=== PATIENT | male | born 1955 | race Hispanic/Latino ===

== ENCOUNTER 2018-03-01 15:42 | Emergency (ER) | payer BC ==
[2018-03-01] MEDS ORDERED: methylPREDNISolone Sod Succ/PF 125 MG/2 ML VIAL ONE (16:20)
[2018-03-01] MEDS ORDERED: Sterile Water 10 ML ONE (16:21)
--- NOTE | 2018-03-01 16:51 | RAD ---
LUMBAR SPINE THREE VIEWS: 03/01/2018 HISTORY: Low back pain for four days. No history of trauma. COMPARISON: None. FINDINGS: There is disk space narrowing with degenerative endplate change and anterior osteophyte formation at the lumbosacral junction. Mild disk space narrowing is noted at L4-L5. There is mild anterior osteo phyte formation at L1-L2, L2-L3, and L3-L4. Multilevel lower lumbar spine facet hypertrophy is present at L4-L5 and at L5-S1. No anterolisthesis or retrolisthesis. No acute fracture or evidence of dislocation is seen. IMPRESSION: Multilevel lower lumbar spine degenerative change. If there are radicular symptoms, follow-up non-em ergent MRI advised. POS: [facility]
== END 2018-03-01 17:00 | disposition home or self-care (01) ==
LOC: SCSER 15:42
DX: S39.012A Strain of muscle, fascia and tendon of lower back, initial encounter (principal); F17.210 Nicotine dependence, cigarettes, uncomplicated; X58.XXXA Exposure to other specified factors, initial encounter
CPT/HCPCS: 72100; 96372; A4216; J2930

== ENCOUNTER 2018-07-03 19:30 | Outpatient (CLI) | payer BC, MEDICARE | END 2018-07-03 19:31 | disposition home or self-care (01) | LOC: SLEEPLAB 19:30 | PROVIDERS: ATTEND Family Medicine | DX: R06.81 Apnea, not elsewhere classified (principal); R06.83 Snoring; R40.0 Somnolence; F41.9 Anxiety disorder, unspecified | CPT/HCPCS: 95810 ==